=== PATIENT | female | born 1975 | race African-American/Black ===

== ENCOUNTER 2021-07-31 07:00 | Observation (INO) | payer MEDICARE ==
[~2021-07-31] VITALS: Ht 167.6 cm; Wt 116.1 kg
[~2021-07-31 07:00] MED LIST: ALBUTEROL0.63 MG/3 NEB; SODIUM CHLORIDE 0.9% 500ML 500 ML ONE; TRANEXAMIC ACID 1,000 MG/10 ML ML ONE; TYLENOL325 MG PO; ULTRAM 50MG50 MG PO; Vancomycin IV 1,000 MG ONE
[2021-07-31] MEDS ORDERED: CELECOXIB 200 MG CAP ONE (07:50)
[2021-07-31] MEDS ORDERED: DEXAMETHASONE SOD PHOS 10 MG/1 ML VIAL ONE (07:50)
[2021-07-31] MEDS ORDERED: SODIUM CHLORIDE 0.9% 50ML 100 ML ONE (07:51)
[2021-07-31] MEDS ORDERED: GABAPENTIN 300 MG CAP ONE (07:51)
[2021-07-31] MEDS ORDERED: ROPIVACAINE 246.25 MG, EPINEPHRINE HCL 1:1000 1ML 0.5 MG, CLONIDINE HCL 0.08 MG, KETORO... INJ ONE ×5 (08:00)
[2021-07-31] MEDS ORDERED: ONDANSETRON HCL INJ 2MG/ML 2ML 2 MG/ML VIAL IV PRN (10:00)
[2021-07-31] MEDS ORDERED: DIPHENHYDRAMINE HCL INJ 50 MG/ML VIAL IV PRN (10:00)
[2021-07-31] MEDS ORDERED: ZOLPIDEM TARTRATE 5 MG TAB PO PRN (10:00)
[2021-07-31] MEDS ORDERED: ACETAMINOPHEN 650 MG SUPP PR PRN (10:00)
[2021-07-31] MEDS ORDERED: HYDROCODONE/APAP 5MG-325MG TAB PO PRN (10:00)
[2021-07-31] MEDS ORDERED: DOCUSATE SODIUM 100 MG CAP PO PRN (10:00)
[2021-07-31] MEDS: HYDROMORPHONE 1MG/1ML INJ ONE ×4 (10:29→11:32)
[2021-07-31] MEDS: FENTANYL CITRATE/PF 100MCG/2 ML INJ ONE ×2 (11:02→11:33)
[2021-07-31 11:18] VITALS: BP 127/80
[2021-07-31] MEDS: SODIUM CHLORIDE 0.9% 1000ML 1,000 ML IV SCH ×2 (11:49→21:31)
[2021-07-31] MEDS: KETOROLAC TROMETHAMINE 30 MG/ML VIAL IV PRN ×2 (11:49→18:30)
[2021-07-31] MEDS ORDERED: LIDOCAINE HCL 2% LOCAL INJ 5 ML SDV VIAL INJ ONE (12:02)
[2021-07-31] MEDS ORDERED: ROCURONIUM BROMIDE 10 MG/ML 5ML VIAL IV ONE (12:02)
[2021-07-31] MEDS ORDERED: GLYCOPYRROLATE INJ 0.2 MG/ML VIAL ONE (12:02)
[2021-07-31] MEDS ORDERED: PROPOFOL IV EMULSION 10 MG/ML 20 ML VIAL ONE (12:02)
[2021-07-31] MEDS ORDERED: ONDANSETRON HCL INJ 2MG/ML 2ML 2 MG/ML VIAL ONE (12:02)
[2021-07-31] MEDS ORDERED: POVIDONE IODINE 0.05% 0.05 % ML PO ONE (12:02)
[2021-07-31] MEDS ORDERED: NEOSTIGMINE 1 MG/ML 10ML VIAL ONE (12:02)
[2021-07-31] MEDS ORDERED: SEVOFLURANE INHAL SOLN 250 ML PEN BTL ONE (12:02)
[2021-07-31 12:03] VITALS: BP 135/88
[2021-07-31] MEDS: ACETAMINOPHEN 1000 MG/100 ML IV PRN ×2 (12:05→18:30)
[2021-07-31] MEDS: HYDROCODONE/APAP 7.5MG-325MG 1 EA TAB PO PRN ×3 (12:20→21:31)
[2021-07-31] MEDS ORDERED: FENTANYL CITRATE/PF 100MCG/2 ML INJ ONE (12:31)
[2021-07-31] MEDS ORDERED: MIDAZOLAM HCL 2 MG/2 ML VIAL ONE (12:31)
[2021-07-31 16:36] VITALS: BP 123/66
[2021-07-31] MEDS: CELECOXIB 200 MG CAP PO SCH (17:31)
[2021-07-31] MEDS: ASPIRIN 325 MG TAB PO SCH (17:31)
[2021-07-31] MEDS: Cefazolin 1 GM in SODIUM CHLORIDE 0.9% 50ML 50 ML IV SCH (17:31)
[2021-07-31 20:00] VITALS: BP 104/72
[2021-08-01] VITALS: BP 92/58
[2021-08-01] MEDS: Cefazolin 1 GM in SODIUM CHLORIDE 0.9% 50ML 50 ML IV SCH ×2 (01:44→08:34)
[2021-08-01] MEDS: HYDROCODONE/APAP 7.5MG-325MG 1 EA TAB PO PRN ×2 (01:45→11:47)
[2021-08-01] MEDS: KETOROLAC TROMETHAMINE 30 MG/ML VIAL IV PRN (01:45)
[2021-08-01 03:58] VITALS: BP 128/74
[2021-08-01 05:37] LABS: BASOPHILS % 0.2 % (0.0-1.0); HEMATOCRIT 29.8 % (34.2-44.1); HEMOGLOBIN 9.3 g/dL (12.0-16.0); LYMPHOCYTES # (AUTO) 1.4 (1.0-3.2); LYMPHOCYTES % 12.7 % (18.0-39.1); MEAN CORPUSCULAR HEMOGLOBIN 27.8 pg (28-32); MEAN CORPUSCULAR HGB CONC 31.2 g/dL (31-35); MONOCYTES # (AUTO) 0.8 (0.2-0.8); NEUTROPHILS # (AUTO) 8.9 (2.1-6.9); NEUTROPHILS % 79.6 % (38.7-80.0); PLATELET COUNT 312 x10e3/uL (140-360); RED BLOOD COUNT 3.35 x10e6/uL (3.6-5.1); RED CELL DISTRIBUTION WIDTH 14.4 % (11.7-14.4)
[2021-08-01] MEDS: SODIUM CHLORIDE 0.9% 1000ML 1,000 ML IV SCH (06:00)
[2021-08-01 06:07] LABS: ALBUMIN 3.2 g/dL (3.5-5.0); ANION GAP 11.2 mmol/L (8-16); CALCIUM 8.3 mg/dL (8.4-10.2); CREATININE, SERUM 0.84 mg/dL (0.57-1.11); POTASSIUM 4.2 mmol/L (3.5-5.1)
[2021-08-01 08:00] VITALS: BP 113/68
[2021-08-01 08:16] VITALS: BP 113/68
[2021-08-01] MEDS: ASPIRIN 325 MG TAB PO SCH (08:35)
[2021-08-01] MEDS: CELECOXIB 200 MG CAP PO SCH (08:36)
[2021-08-01] MEDS ORDERED: ACETAMINOPHEN 1000 MG/100 ML IV PRN (10:00)
[2021-08-01 12:00] VITALS: BP 120/70
[2021-08-01] MEDS ORDERED: ONDANSETRON HCL 4 MG ORAL DISINTEGRATING TAB PO PRN (13:00)
== END 2021-08-01 13:51 | disposition home or self-care (01) ==
LOC: OR 07:00 → PACU V 09:56 → MED/SURG 11:18
PROVIDERS: ADMIT Specialist; ATTEND Specialist
DX: M16.51 Unilateral post-traumatic osteoarthritis, right hip (principal); J45.909 Unspecified asthma, uncomplicated; Z88.5 Allergy status to narcotic agent; Z01.812 Encounter for preprocedural laboratory examination; Z20.822 Contact with and (suspected) exposure to COVID-19; E66.01 Morbid (severe) obesity due to excess calories; Z68.41 Body mass index [BMI] 40.0-44.9, adult; Z72.0 Tobacco use; Z83.3 Family history of diabetes mellitus
CPT/HCPCS: 36415; 72170; 80053; 81025; 82948; 85025; 86850; 86900; 86920; 94799; G0378; J0171; J0690; J1100; J1170; J1200; J1885; J2001; J2250; J2405; J2710; J2795; J3010; J3370; J7030; J7040; U0002